=== PATIENT | male | born 1990 | race Caucasian/White ===

== ENCOUNTER 2021-01-03 05:02 | Emergency (ER) | payer OTHER, SELFPAY ==
--- NOTE | ~2021-01-03 | US_ITS ---
EXAMINATION: US ABDOMEN LIMITED CLINICAL INFORMATION: Right upper quadrant pain. COMPARISON: None TECHNIQUE: Real-time imaging of the right upper quadrant abdominal viscera. FINDINGS: PANCREAS: Visualized portions unremarkable. LIVER: Unremarkable. GALLBLADDER: Unremarkable. COMMON BILE DUCT: Normal in caliber measuring 0.3 cm in diameter. RIGHT KIDNEY: 10.5 cm. Unremarkable. FREE FLUID: None. US/US abdomen limited IMPRESSION: Unremarkable right upper quadrant abdominal ultrasound.
--- NOTE | ~2021-01-03 | XR_ITS ---
EXAMINATION: XR CHEST CLINICAL INFORMATION: Chest pain. COMPARISON: None TECHNIQUE: Frontal view of the chest was obtained. FINDINGS: No significant abnormality is noted involving the heart, lungs, mediastinum, bony thorax or soft tissues. XR/XR chest 1V IMPRESSION: No acute cardiopulmonary process.
[2021-01-03 05:21] VITALS: BP 143/64; PULSE 79; RESP 18; TEMP 36.8; O2SAT 100; BMI 23.2
--- NOTE | 2021-01-03 06:15 | PC.NURSE ---
PT TO ED WITH C/O RIGHT SIDED RIB PAIN, UNK INJURY TO AREA. PAIN WOKE PT UP FROM SLEEP. IN ROOM FOR EVAL. IV PLACED TO LAC, LABS DRAWN TO LAB. PT MEDICATED PER EMAR FOR PAIN.
[2021-01-03] MEDS: Ketorolac Tromethamine 15 MG/ML VIAL 30 MG IVPUSH (06:16)
[2021-01-03 06:21] LABS: MANUAL DIFF FLAG NO
[2021-01-03 06:25] LABS: Basophils Absolute Auto 0.1 X10*3/uL (0.0-0.2); Basophils Percent Auto 0.7 % (0-2); Eosinophils Absolute Auto 0.2 X10*3/uL (0.0-0.4); Eosinophils Percent Auto 1.8 % (0-4); Hematocrit 41.3 % (42.0-52.0); Hemoglobin 14.2 g/dl (14.0-18.0); Imm Gran Abs Auto 0.04 X10*3/uL (0.00-0.03); Imm Gran Pct Auto 0.5 % (0.0-0.4); Lymphocytes Absolute Auto 1.5 X10*3/uL (1.2-4.9); Lymphocytes Percent Auto 17.5 % (20-40); Mean Corpuscular HGB Conc 34.4 g/dl (31.0-36.0); Mean Corpuscular Hemoglobin 30.5 pg (27.0-33.0); Mean Corpuscular Volume 88.6 fL (80.0-98.0); Mean Platelet Volume 9.1 fL (9.4-12.4); Monocytes Absolute Auto 0.8 X10*3/uL (0.1-1.2); Monocytes Percent Auto 8.6 % (2-11); Neutrophils Absolute Auto 6.2 x10*3/uL (2.0-8.3); Neutrophils Percent Auto 70.9 % (45-73); Platelet Count 240 X10*3/uL (160-400); Red Blood Count 4.66 X10*6/uL (4.60-5.80); Red Cell Distribution Width 11.9 % (11.0-16.0); White Blood Count 8.8 X10*3/uL (4.8-10.8)
[2021-01-03 06:38] LABS: COVID-19 Test Negative (Negative)
[2021-01-03 06:44] LABS: Alanine Aminotransferase 14 U/L (0-40); Albumin Level 4.2 g/dL (3.5-5.0); Alkaline Phosphatase 41 U/L (39-117); Anion Gap 10 (12-20); Aspartate Amino Transferase 17 U/L (5-37); Bilirubin Total 0.9 mg/dL (0.0-1.0); Blood Urea Nitrogen 15 mg/dL (9-16); Carbon Dioxide 27 mmol/L (22-29); Chloride 107 mmol/L (96-108); Estimated Glomerular Filt Rate > 60; Glucose Random 99 mg/dL (60-115); Potassium 4.2 mmol/L (3.3-5.1); Sodium 140 mmol/L (135-145); Total Protein 6.7 g/dL (6.5-8.0)
--- NOTE | 2021-01-03 06:58 | ED.ABDPAIN ---
HPI - Abdominal Pain General Chief Complaint: Abdominal Pain Stated Complaint: Flank pain Time Seen by Provider: 01/03/21 06:56 History of Present Illness HPI narrative: Patient is a 30-year-old male presents today with having abdominal pain mainly over the right upper quadrant area will come up from sleep at approximately 04:00. Pain was sharp. Improved with time. No cough no congestion or upper respiratory symptoms. No diaphoresis. Patient did have a hamburger last night approximately 18:00. No change in bowel movements. Patient is from home. No history of similar pains in the past. No history of diabetes, hypertension, high cholesterol, smoking, mi. Related Data Allergies Allergy/AdvReac Type Severity Reaction Status Date / Time No Known Allergies Allergy Unverified 11/14/19 16:16 Physical Exam Vital Signs: Vital Signs: Last Vital Signs Temp 97.9 F 01/03/21 07:40 Pulse 70 01/03/21 07:40 Resp 18 01/03/21 07:40 BP 127/77 01/03/21 07:40 Pulse Ox 99 01/03/21 07:40 Body Mass Index 23.2 Appearance: Alert. Oriented X3. No acute distress. Eyes: Pupils equal, round and reactive to light. ENT: Pharynx normal. Neck: Normal inspection. Neck supple. No lymph nodes noted. No crepitus CVS: Normal heart rate and rhythm. Pulses normal. Normal S1 and S2 Respiratory: No respiratory distress. Breath sounds normal. No Wheezing. No rales Abdomen: Soft and nontender. No rigidity. No distention. good BS x4 Skin: Skin warm and dry. Normal skin color. Normal skin turgor. Extremities: No lower extremity edema. Neurovascular intact to all extremities. No Lacerations. No Rash Neuro: Oriented X 3. No motor deficit. No sensory deficit. Moving all extermities. No slurred speech MDM - Abdominal Pain MDM Narrative Medical decision making narrative: Well-appearing has right upper quadrant pain. The ultrasound was negative for any acute evidence of cholecystitis. Patient's white counts normal. Patient's liver profile was normal. Symptom has resolved on arrival. Repeat abdominal exam was soft nontender. Patient's urine showed no evidence of blood. No evidence for infection. Unlikely to have a kidney stone. Will discharge patient home close follow-up on an outpatient basis. Discussed with patient at length. Very small risk of appendicitis still exist. [place] at this time patient unlikely to have appendicitis. Close follow-up on an outpatient basis. Differential Diagnosis Differential diagnosis: Likely abdominal pain Medical Records Attestation: I reviewed the patient's medical records. Lab Data Attestation: I reviewed the patient's lab results. Result diagrams: 01/03/21 06:12 01/03/21 06:12 Labs: Lab Results 01/03/21 01/03/21 01/03/21 Range/Units 06:12 06:12 06:12 WBC 8.8 (4.8-10.8) X10*3/uL RBC 4.66 (4.60-5.80) X10*6/uL Hgb 14.2 (14.0-18.0) g/dl Hct 41.3 L (42.0-52.0) % MCV 88.6 (80.0-98.0) fL MCH 30.5 (27.0-33.0) pg MCHC 34.4 (31.0-36.0) g/dl RDW 11.9 (11.0-16.0) % Plt Count 240 (160-400) X10*3/uL MPV 9.1 L (9.4-12.4) fL Immature Gran % (Auto) 0.5 H (0.0-0.4) % Neut % (Auto) 70.9 (45-73) % Lymph % (Auto) 17.5 L (20-40) % Avery % (Auto) 8.6 (2-11) % Eos % (Auto) 1.8 (0-4) % Baso % (Auto) 0.7 (0-2) % Lymph # (Auto) 1.5 (1.2-4.9) X10*3/uL A[place] # (Auto) 0.8 (0.1-1.2) X10*3/uL Eos # (Auto) 0.2 (0.0-0.4) X10*3/uL Baso # (Auto) 0.1 (0.0-0.2) X10*3/uL Abs Immat Gran (auto) 0.04 H (0.00-0.03) X10*3/uL Absolute Neuts (auto) 6.2 (2.0-8.3) x10*3/uL Absolute Nucleated RBC 0.000 (0.0-0.012) X10*3/uL Nucleated RBC % (auto) 0.0 (0.0-0.2) /100WBC Sodium 140 (135-145) mmol/L Potassium 4.2 (3.3-5.1) mmol/L Chloride 107 (96-108) mmol/L Carbon Dioxide 27 (22-29) mmol/L Anion Gap 10 L (12-20) BUN 15 (9-16) mg/dL Creatinine 1.13 (0.5-1.4) mg/dL Estim Creat Clear Calc 107.0 Estimated GFR > 60 Random Glucose 99 (60-115) mg/dL Calcium 9.0 (8.4-10.2) mg/dL Total Bilirubin 0.9 (0.0-1.0) mg/dL AST 17 (5-37) U/L ALT 14 (0-40) U/L Alkaline Phosphatase 41 (39-117) U/L Total Protein 6.7 (6.5-8.0) g/dL Albumin 4.2 (3.5-5.0) g/dL Urine Color Urine Appearance Urine pH (5.0-8.0) Ur Specific [place] (1.005-1.025) Urine Protein (NEG-TRACE) MG/DL Urine Glucose (UA) (NEG) MG/DL Urine Ketones (NEG) MG/DL Urine Blood (NEG) Urine Nitrite (NEG) Ur Leukocyte Esterase (NEG) Urine RBC (0) /HPF Urine WBC (0-4) /HPF Ur Squamous Epith Cells /LPF Urine Bacteria /LPF COVID-19 ([place]) Negative (Negative) COVID-19 Clin Com See Note 01/03/21 Range/Units 08:38 WBC (4.8-10.8) X10*3/uL RBC (4.60-5.80) X10*6/uL Hgb (14.0-18.0) g/dl Hct (42.0-52.0) % MCV (80.0-98.0) fL MCH (27.0-33.0) pg MCHC (31.0-36.0) g/dl RDW (11.0-16.0) % Plt Count (160-400) X10*3/uL MPV (9.4-12.4) fL Immature Gran % (Auto) (0.0-0.4) % Neut % (Auto) (45-73) % Lymph % (Auto) (20-40) % Avery % (Auto) (2-11) % Eos % (Auto) (0-4) % Baso % (Auto) (0-2) % Lymph # (Auto) (1.2-4.9) X10*3/uL [place] # (Auto) (0.1-1.2) X10*3/uL Eos # (Auto) (0.0-0.4) X10*3/uL Baso # (Auto) (0.0-0.2) X10*3/uL Abs Immat Gran (auto) (0.00-0.03) X10*3/uL Absolute Neuts (auto) (2.0-8.3) x10*3/uL Absolute Nucleated RBC (0.0-0.012) X10*3/uL Nucleated RBC % (auto) (0.0-0.2) /100WBC Sodium (135-145) mmol/L Potassium (3.3-5.1) mmol/L Chloride (96-108) mmol/L Carbon Dioxide (22-29) mmol/L Anion Gap (12-20) BUN (9-16) mg/dL Creatinine (0.5-1.4) mg/dL Estim Creat Clear Calc Estimated GFR Random Glucose (60-115) mg/dL Calcium (8.4-10.2) mg/dL Total Bilirubin (0.0-1.0) mg/dL AST (5-37) U/L ALT (0-40) U/L Alkaline Phosphatase (39-117) U/L Total Protein (6.5-8.0) g/dL Albumin (3.5-5.0) g/dL Urine Color YELLOW Urine Appearance CLEAR Urine pH 6.0 (5.0-8.0) Ur Specific [place] 1.025 (1.005-1.025) Urine Protein NEG (NEG-TRACE) MG/DL Urine Glucose (UA) NEG (NEG) MG/DL Urine Ketones NEG (NEG) MG/DL Urine Blood NEG (NEG) Urine Nitrite NEG (NEG) Ur Leukocyte Esterase NEG (NEG) Urine RBC 0 (0) /HPF Urine WBC 0-2 (0-4) /HPF Ur Squamous Epith Cells NONE /LPF Urine Bacteria NONE /LPF COVID-19 ([place]) (Negative) COVID-19 Clin Com Discharge Plan Discharge Clinical Impression: Abdominal pain Patient Disposition: Home, Self-Care Instructions: Abdominal Pain (ED) Additional Instructions: Small risk of appendicitis still exists. Worsened abdominal pain return to the emergency department Referrals: Morgan Acosta MD [Primary Care Provider] - 2 days PMF Past Medical History Attestation statement: The following information was validated with the patient. Social History Social History Patient Tobacco Use Status: Never used Tobacco Smoked in Last 30 Days: No Use of substances other than those prescribed or required for medical reasons: Yes Substance Use Type: Marijuana Advance Directives: No Advance Directives Information Provided: No
[2021-01-03 07:40] VITALS: BP 127/77; PULSE 70; RESP 18; TEMP 36.6; O2SAT 99
[2021-01-03 08:43] LABS: Appearance Urine CLEAR; Color Urine YELLOW; Glucose Urine UA NEG (NEG); Leukocyte Esterase Urine NEG (NEG); Nitrite Urine NEG (NEG); Specific Gravity - Urine 1.025 (1.005-1.025); Urine Blood NEG (NEG); Urine Ketones NEG (NEG); Urine Protein NEG (NEG-TRACE)
[2021-01-03 08:49] LABS: RBC Urine 0 /HPF (0); WBC Urine 0-2 /HPF (0-4)
== END 2021-01-03 09:21 | disposition home or self-care (01) ==
PROVIDERS: Emergency Provider Emergency Medicine Emergency Medical Services; PCP Internal Medicine
DX: R10.11 Right upper quadrant pain (principal); Z20.822 Contact with and (suspected) exposure to COVID-19
CPT/HCPCS: 36415; 71045; 76705; 80053; 81001; 85025; 87635; 96374; 99285; J1885

== ENCOUNTER 2021-02-17 11:47 | Outpatient (REF) | payer OTHER, SELFPAY | END 2021-02-17 11:48 | disposition home or self-care (01) | LOC: HO.WFDLDS 11:47 | PROVIDERS: Visit Provider Internal Medicine | DX: Z20.822 Contact with and (suspected) exposure to COVID-19 (principal) | CPT/HCPCS: C9803; U0003; U0005 ==

== ENCOUNTER 2024-11-23 07:48 | Inpatient (IN) | payer BC, SELFPAY ==
[2024-11-23] VITALS (10 sets, daily range): BP systolic 101–141; BP diastolic 56–71; PULSE 57–85; RESP 16–19; TEMP 35.7–36.8; O2SAT 96–100; BMI 24.8; BMI 24.5
--- NOTE | ~2024-11-23 | CT_ITS ---
CLINICAL HISTORY: RLQ pain, leukocytosis, r o acute appy CT abdomen and pelvis with contrast Comparison: None provided Findings: The lung bases are clear. The appendix is abnormally dilated, thick-walled and surrounded by stranding. No drainable abscess or definite free air. Reactive free fluid within the pelvis. No bowel obstruction. The liver, gallbladder, spleen, adrenal glands and pancreas are unremarkable. Kidneys, ureters and bladder are normal. No acute osseous finding. Impression: Acute appendicitis without evidence of perforation or current abscess. This document has been electronically signed by: Ajit Michele MD on 11/23/2024 09:30:57
[2024-11-23 08:12] LABS: MANUAL DIFF FLAG NO
[2024-11-23 08:13] LABS: Hematocrit 44.4 % (42.0-52.0); Hemoglobin 15.2 g/dl (14.0-18.0); Imm Gran Abs Auto 0.05 X10*3/uL (0.00-0.03); Imm Gran Pct Auto 0.3 % (0.0-0.4); Lymphocytes Absolute Auto 0.8 X10*3/uL (1.2-4.9); Mean Corpuscular HGB Conc 34.2 g/dl (31.0-36.0); Mean Corpuscular Hemoglobin 29.9 pg (27.0-33.0); Mean Corpuscular Volume 87.4 fL (80.0-98.0); NRBC Abs Auto 0.000 X10*3/uL (0.0-0.012); NRBC Pct Auto 0.0 /100WBC (0.0-0.2); Platelet Count 298 X10*3/uL (160-400); Red Blood Count 5.08 X10*6/uL (4.60-5.80); White Blood Count 16.9 X10*3/uL (4.8-10.8)
[2024-11-23 08:14] LABS: Appearance Urine Cloudy; Glucose Urine UA Negative (Negative); PH 7.5 (5.0-9.0); Specific Gravity - Urine 1.025 (1.005-1.025)
--- OUTSIDE RECORDS SUMMARY | 2024-11-23 08:23 | XMS_ITS | Clinical Summary ---
Author Organization [facility] Address [address] [place] [phone] Phone Care Team Providers Care Traffic Control Flagger Name Role Phone Morgan Acosta MD Primary Care Provider [phone] Medications No known medications Active Problems No known active problems Social History Tobacco Use Types Packs/Day Years Used Date Smoking Tobacco: Never Assessed Education Answer Date Recorded Are you interested in more education? Not on richard e 06/25/2022 Are you concerned about learning? Not on file 06/25/2022 No 06/25/2022 No 06/25/2022 Digital Access Answer Date Recorded No 07/26/2022 No 07/26/2022 Reliable internet access at home? Not on file 07/26/2022 Device with a working camera? Not on file Sex and Gender Information Value Date Recorded Sex Assigned at Male 11/17/2021 8:47 AM EDT Legal Sex Male 8:33 AM EDT Gender Identity Male 11/17/2021 8:47 AM EDT Sexual Orientation Straight 11/17/2021 8: 47 AM EDT Last Filed Vital Signs Vital Sign Reading Time Taken Comments Blood Pressure 128/76 11/16/2023 2:40 PM EDT Pulse 64 11/16/2023 2:40 PM EDT Temperature 36.8 C (98.2 F) 11/16/2023 2:40 PM EDT Respiratory Rate 18 11/16/2023 2:40 PM EDT Oxygen Saturation 98% 11/16/2023 2:40 PM EDT Inhaled Oxygen Concentration - - Weight 83.9 kg (185 lb) 11/16/2023 2:40 PM EDT Height 185.4 cm (6' 1 ) 11/16/2023 2:40 PM EDT Body Mass Index 24.41 11/16/2023 2:40 PM EDT Plan of Treatment Health Maintenance Due Date Last Done Comments Adult Td,Tdap Booster 1989 LIPID PANEL 1989 DEPRESSION SCREENING 2001 SMOKING Hx and SMOKELESS TOB ACCO SCREENING 2002 HEPATITIS C SCREENING 05/07/2007 HIV ONE-TIME SCREENING (18-6 5 YEARS) 05/07/2007 INFLUENZA VACCINE (#1) 2024 COVID-19 VACCINE ( - 2023-2 5 season) 2024 HEPATITIS A VACCINES Aged Out No long er eligible based on patient's age to complete this topic HIB VACCINES Aged Out No longer eligi ble based on patient's age to complete this topic MENINGOCOCCAL VACCINES (ACWY) Aged Out No longer eligible based on patient's age to complete this topic MENINGOCOCCAL VACCINES (B) Aged Out N o longer eligible based on patient's age to complete this topic PNEUMOCOCCAL VACCINES (0-49 years) Aged Out No longer eligible based on patient's age to complete this topic Medical Devices Not on file Insurance [facility] [place] [address] [place] [address] [place] [address] [facility] Care Teams Traffic Control Flagger Relationship Specialty Start Date End Date Morgan Acosta MD [address] [place] [address] [id number] PCP - General Internal Medicine 11/17/21 Additional Source Comments The information contained in this document represents components of the legal health record. It is not the complete legal health record.[facility]
[2024-11-23 08:27] LABS: Alanine Aminotransferase 26 U/L (0-40); Albumin Level 5.0 g/dL (3.5-5.0); Alkaline Phosphatase 61 U/L (39-117); Anion Gap 9 (12-20); Aspartate Amino Transferase 23 U/L (5-37); Blood Urea Nitrogen 15 mg/dL (9-16); Calcium 9.8 mg/dL (8.4-10.2); Carbon Dioxide 29 mmol/L (22-29); Chloride 107 mmol/L (96-108); Creatinine Clr Calc Pharmacy 105.9; Estimated Glomerular Filt Rate > 60; Lipase 21 U/L (8-78); Potassium 3.7 mmol/L (3.3-5.1); Sodium 141 mmol/L (135-145); Total Protein 7.8 g/dL (6.5-8.0)
--- NOTE | 2024-11-23 08:49 | ED_ITS ---
HPI - Abdominal Pain General Chief Complaint: Abdominal Pain Stated Complaint: abd pain Time Seen by Provider: 11/23/24 08:18 Source: patient Mode of arrival: ambulatory Limitations: no limitations History of Present Illness ED Provider: Mirtha Coleman APRN HPI narrative: 34 yo male with no known medical history, no known surgical history presets to the ER with complaints of abdominal pain. Reports approximately 4 days ago he started to notice diffuse abdominal pain described as fullness, pressure and bloating. Pain became more focal to the right lower abdomen over the last 24 hours. Denies any nausea, vomiting, diarrhea, constipation, urinary changes, fevers or chills. Related Data Allergies Allergy/AdvReac Type Severity Reaction Status Date / Time No Known Allergies Allergy Verified 11/23/24 07:56 Review of Systems Review of Systems Yes all other systems are reviewed and are negative Constitutional: Reports no additional constitutional complaints, Denies body ache(s), Denies chills, Denies fever(s), Denies headache(s) and Denies weakness Eyes: Reports no additional eye complaints and Denies change in vision Reports system reviewed and no additional complaints, except as documented, Denies dizziness, Denies headache(s), Denies nasal congestion, Denies nasal discharge and Denies neck pain Cardiovascular: Reports no additional cardiovascular complaints, Denies chest pain, Denies leg edema and Denies dyspnea Respiratory: Reports no additional respiratory complaints, Denies cough and Denies dyspnea Gastrointestinal: Reports no additional gastrointestinal complaints, Reports abdominal pain, Denies diarrhea, Denies nausea and Denies vomiting Genitourinary: Denies urinary incontinence Musculoskeletal: Reports no additional musculoskeletal complaints, Denies back pain, Denies arthralgias, Denies joint swelling, Denies neck pain, Denies numbness and Denies tingling Skin/Breast: Reports system reviewed and no additional complaints, except as docu and Denies rash Reports system reviewed and no additional complaints, except as documented, Denies Abnormal speech present, Denies dizziness, Denies headache(s), Denies numbness, Denies tingling and Denies weakness PMFSH Past Medical History Attestation statement: The following information was validated with the patient. Source: old records reviewed and nursing notes reviewed Social History Social History Unable to assess alcohol history related to: Unknown Patient Tobacco Use Status: Never used Tobacco Substance Use Type: Marijuana Advance Directives: No Advance Directives Information Provided: No Physical Exam ED Vital Signs: Vital Signs - 24 hr 11/23/24 07:55 11/23/24 09:35 Temperature 96.8 F 98.2 F Pulse Rate 84 65 Respiratory Rate 16 18 Blood Pressure 141/67 H 101/56 L Pulse Oximetry 99 99 Oxygen Delivery Method Room Air Room Air BMI result Body Mass Index 24.8 Const General: cooperative, healthy appearing, comfortable and no acute distress Orientation/consciousness: patient oriented x3 Limitations: no limitations HENMT Head: Yes normal to inspection Ears: hearing grossly normal bilaterally General nose exam: Normal external nose present Face and sinus: Yes normal facial exam Mouth: Normal oral and palatal mucosa present Throat: Yes posterior oropharynx normal Eyes General: appearance normal, both eyes and all related structures Pupils: Equal, round and reactive pupils present Neck Neck: Yes normal visual inspection Chest Chest palpation & inspection: normal inspection of the chest Resp Effort & Inspection: normal respiratory effort Auscultation: clear to auscultation bilaterally Cardio Rate: regular rate Rhythm: regular rhythm Peripheral pulses: Peripheral pulses 2+ throughout GI Inspection: Yes normal to inspection Palpation (GI): Soft to palpation and Tenderness to palpation present (GI) (diffusely tender-no rebound or guarding ) Auscultation: normal bowel sounds Back/Spine/Pelvis Thoracic/Lumbar Spine: thoracic and lumbar spine normal to inspection Skin General skin exam: no rashes or lesions noted Neuro General: patient oriented x3, no focal motor deficits and normal sensation to monofilament Cranial nerves: Yes Equal, round and reactive pupils present Cognition (Neuro): normal cognition Speech: No Abnormal speech present Gait exam (Neuro): Normal gait present Motor exam (neuro): 5/5 motor strength present throughout Extrem General: Yes normal to inspection Medical Decision Making Medical Decision Making MDM Narrative: 34 yo male with no known medical history, no known surgical history presets to the ER with complaints of abdominal pain. Reports approximately 4 days ago he started to notice diffuse abdominal pain described as fullness, pressure and bloating. Pain became more focal to the right lower abdomen over the last 24 hours. Denies any nausea, vomiting, diarrhea, constipation, urinary changes, fevers or chills. On exam patient has some discomfort to the right lower quadrant with no rebound or guarding. He has normal bowel sounds. His vitals are stable. Labs from triage show leukocytosis, otherwise normal. Will obtain CT abdomen and pelvis Offered analgesia but patient declined Differential Diagnosis Differential Diagnoses: The differential diagnosis associated with the presentation includes Appendicitis, diverticulitis Admission/Observation Consideration of admission/observation: Escalation of care including admission/observation considered Consult Healthcare Provider Management of the patient was discussed with: [employer] Chemist General surgery (Cheryl) paged [phone] to general surgery. Plan for admission for surgical procedure Lab Data MDM Lab Attestation statement: I reviewed the patient's lab results. 11/23/24 08:06 11/23/24 08:06 Labs: Lab Results 11/23/24 11/23/24 Range/Units 08:06 09:11 WBC 16.9 H (4.8-10.8) X10*3/uL RBC 5.08 (4.60-5.80) X10*6/uL Hgb 15.2 (14.0-18.0) g/dl Hct 44.4 (42.0-52.0) % MCV 87.4 (80.0-98.0) fL MCH 29.9 (27.0-33.0) pg MCHC 34.2 (31.0-36.0) g/dl RDW 12.4 (11.0-16.0) % Plt Count 298 (160-400) X10*3/uL MPV 8.9 L (9.4-12.4) fL Immature Gran % (Auto) 0.3 (0.0-0.4) % Neut % (Auto) 88.8 H (45-73) % Lymph % (Auto) 4.6 L (20-40) % [place] % (Auto) 5.6 (2-11) % Eos % (Auto) 0.2 (0-4) % Baso % (Auto) 0.5 (0-2) % Lymph # (Auto) 0.8 L (1.2-4.9) X10*3/uL [place] # (Auto) 1.0 (0.1-1.2) X10*3/uL Eos # (Auto) 0.0 (0.0-0.4) X10*3/uL Baso # (Auto) 0.1 (0.0-0.2) X10*3/uL Abs Immat Gran (auto) 0.05 H (0.00-0.03) X10*3/uL Absolute Neuts (auto) 15.0 H (2.0-8.3) x10*3/uL Absolute Nucleated RBC 0.000 (0.0-0.012) X10*3/uL Nucleated RBC % (auto) 0.0 (0.0-0.2) /100WBC Sodium 141 (135-145) mmol/L Potassium 3.7 (3.3-5.1) mmol/L Chloride 107 (96-108) mmol/L Carbon Dioxide 29 (22-29) mmol/L Anion Gap 9 L (12-20) BUN 15 (9-16) mg/dL Creatinine 1.10 (0.5-1.4) mg/dL Estim Creat Clear Calc 105.9 Estimated GFR > 60 Random Glucose 117 H (60-115) mg/dL Lactic Acid 0.8 (0.5-2.0) mmol/L Calcium 9.8 D (8.4-10.2) mg/dL Total Bilirubin 0.7 (0.0-1.0) mg/dL AST 23 (5-37) U/L ALT 26 (0-40) U/L Alkaline Phosphatase 61 (39-117) U/L Total Protein 7.8 (6.5-8.0) g/dL Albumin 5.0 (3.5-5.0) g/dL Lipase 21 (8-78) U/L Urine Color Yellow Urine Appearance Cloudy Urine pH 7.5 (5.0-9.0) Ur Specific [place] 1.025 (1.005-1.025) Urine Protein Negative (Neg-Trace) mg/dL Urine Glucose (UA) Negative (Negative) mg/dL Urine Ketones Trace (Negative) mg/dL Urine Blood Negative (Negative) Urine Nitrite Negative (Negative) Ur Leukocyte Esterase Negative (Negative) Independent Interpretation I performed an independent interpretation of an: CT Scan Interpretation: I independently viewed the CT scan agree with the radiology report Radiology Impression Discussion of test interpretation with radiology: I have reviewed the radiologist's reading. Radiologist Impression: [address] [address] [address] Scan Report Signed with Nelyenda Patient: Hieu Piper MR#: [id number] : 1990 Acct:[id number] Age/Sex: 34 / M ADM Date: 11/23/24 Loc: HO.ED Attending Dr: Ordering Physician: Mirtha Coleman NP Date of Service: 11/23/24 Procedure(s): CT abdomen pelvis w IV con Accession Number(s): [id number] cc: Mirtha Coleman NP; Physician,None ~ Report Number: [id number]: Total DLP = 493.00 mGy-cm Reason for Exam: RLQ pain, leukocytosis, r/o acute appy ADDENDUMThis document has been electronically signed by: Ajit Michele MD on 11/23/2024 09:30:57 ADDENDUM: This report was discussed with Jared Shannon MD on Nov 23, 2024 09:35:00 EDT. This document has been electronically signed by: Sue Ortega on 11/23/2024 09:35:58 Addendum Dictated By: Ajit Michele MD Addendum Signed By: <Electronically signed by Ajit Michele MD in [place]> 11/23/24935 Addendum Cosigned By: DD/ TD/TT: 11/23/24 CLINICAL HISTORY: RLQ pain, leukocytosis, r o acute appy CT abdomen and pelvis with contrast Comparison: None provided Findings: The lung bases are clear. The appendix is abnormally dilated, thick-walled and surrounded by stranding. No drainable abscess or definite free air. Reactive free fluid within the pelvis. No bowel obstruction. The liver, gallbladder, spleen, adrenal glands and pancreas are unremarkable. Kidneys, ureters and bladder are normal. No acute osseous finding. Impression: Acute appendicitis without evidence of perforation or current abscess. Medications Administered Generic Name Dose Route Start Last Admin Trade Name Freq PRN Reason Stop Dose Admin Piperacillin Sod/Tazobactam 50 mls @ 100 mls/hr 11/23/24 10:03 11/23/24 10:12 Sod 3.375 gm/ Sodium Chloride IV 11/23/24 10:32 100 mls/hr ONCE ONE Administration Discontinued Medications Generic Name Dose Route Start Last Admin Trade Name Freq PRN Reason Stop Dose Admin Iohexol 100 ml 11/23/24 08:51 11/23/24 08:52 Iohexol 350 Mg/Ml 100 Ml Infus..Btl IV 11/23/24 08:52 85 ml ONCE ONE Administration Critical Care Time Critical Care Time Critical Care Time: Yes Total Critical Care Time: 60 Attestation: Time includes: direct patient care, patient reassessment, coordination of patient care, interpretation of data review of patient's medical records, medical consultation and documentation of patient care. Discharge Plan Discharge Clinical Impression: Acute appendicitis Patient Disposition: Admitted As Inpatient Print Language: Kiswahili
[2024-11-23] MEDS: iohexoL 350 MG/ML 100 ML INFUS..BTL IV (08:52)
--- NOTE | 2024-11-23 08:54 | PC.NURSE ---
Pt in CT at this time, 20G IV was placed to R AC.
--- NOTE | 2024-11-23 10:19 | P.HPGS_ITS ---
History of Present Illness History of Present Illness Date of Service: 11/23/24 Chief complaint: acute appendicitis Narrative: Hieu Piper is a 34 year old male presenting with complaints of abdominal pain in the right lower quadrant. The pain began in the right upper quadrant on Monday but over the next several days gradually radiated down to the right lower quadrant. Last evening the pain became quite severe and he subsequently presented to the emergency department this morning. He denies a previous history of similar abdominal pain. He does have nausea without vomiting and reports a reduced appetite. He denied fever or chills. The pain does seem to increase with movement. Workup in the emergency department revealed an elevated WBC of 16.9. CT abdomen and pelvis confirmed a thickened and enlarged appendix with inflammatory changes without evidence of perforation or abscess. He is admitted to the surgical service for further management of his acute appendicitis. Review of Systems 2 Review of Systems: Yes all other systems are reviewed and are negative [facility] Social History Social History Unable to assess alcohol history related to: Unknown Patient Tobacco Use Status: Never used Tobacco Substance Use Type: Marijuana Advance Directives: No Advance Directives Information Provided: No Meds Allergies Allergy/AdvReac Type Severity Reaction Status Date / Time No Known Allergies Allergy Verified 11/23/24 07:56 Active Medications: Current Medications Hydromorphone HCl (Hydromorphone Hcl 0.5 Mg/0.5 Ml Syringe) 0.5 mg IVPUSH Q3H PRN; Protocol PRN Reason: Pain, Severe (Pain Scale 7-10) Piperacillin Sod/Tazobactam (Sod 3.375 gm/ Sodium Chloride) 50 mls @ 100 mls/hr IV ONCE ONE Stop: 11/23/24 10:32 Last Admin: 11/23/24 10:12 Dose: 100 mls/hr Acetaminophen (Ofirmev) 1,000 mg in 100 mls @ 400 mls/hr IV Q6H PRN PRN Reason: Pain, Mild (Pain Scale 1-3) Dextrose/Lactated Ringer's (D5lr) 1,000 mls @ 125 mls/hr IVCONT .Q8H [facility] Piperacillin Sod/Tazobactam (Sod 3.375 gm/ Sodium Chloride) 50 mls @ 100 mls/hr IV Q6H [facility] Melatonin (Melatonin 3 Mg Tablet) 6 mg PO BEDTIME PRN PRN Reason: Insomnia Ondansetron HCl (Ondansetron Hcl 4 Mg/2 Ml Vial) 4 mg IVPUSH QID PRN PRN Reason: Nausea Sodium Chloride (0.9 % Sodium Chloride Flush 3 Ml Syringe) 3 ml IVFLUSH QSHIFT [facility] Physical Exam 2 Vital Signs: Vital Signs: Last Vital Signs Temp 98.2 F 11/23/24 09:35 Pulse 65 11/23/24 09:35 Resp 18 11/23/24 09:35 BP 101/56 L 11/23/24 09:35 Pulse Ox 99 11/23/24 09:35 O2 Del Method Room Air 11/23/24 09:35 BMI result Body Mass Index 24.8 Const: General: cooperative and no acute distress Nutritional Appearance: w ell nourished Orientation/consciousness: patient oriented x3 Limitations: no limitations HEENT: Head: Yes normocephalic and Yes atraumatic Ears: hearing grossly normal bilaterally Resp: Effort & Inspection: normal respiratory effort, no audible wheezes, no cough and no respiratory distress Cardio: Jugular venous distension: no JVD GI: Inspection: Yes normal to inspection Palpation (GI): Soft to palpation, Tenderness to palpation present (GI) in the LLQ, in the RLQ, at McBurney's point, obturator sign positive and Rovsing's sign positive, no hernias and no masses Percussion: Yes normal to percussion Auscultation: normal bowel sounds Rectal Exam - Male: Yes deferred Skin: Other: Warm, dry, no rash Neuro: General: patient oriented x3 Extrem: General: Yes no clubbing, cyanosis or edema Results Results Labs: Short CBC 11/23/24 Range/Units 08:06 WBC 16.9 H (4.8-10.8) X10*3/uL Hgb 15.2 (14.0-18.0) g/dl Hct 44.4 (42.0-52.0) % Plt Count 298 (160-400) X10*3/uL BMP 11/23/24 08:06 Sodium 141 Potassium 3.7 Chloride 107 Carbon Dioxide 29 BUN 15 Creatinine 1.10 Calcium 9.8 D Liver Function 11/23/24 Range/Units 08:06 Total Bilirubin 0.7 (0.0-1.0) mg/dL AST 23 (5-37) U/L ALT 26 (0-40) U/L Alkaline Phosphatase 61 (39-117) U/L Albumin 5.0 (3.5-5.0) g/dL Urine 11/23/24 Range/Units 08:06 Urine Color Yellow Urine Appearance Cloudy Urine pH 7.5 (5.0-9.0) Ur Specific [facility] 1.025 (1.005-1.025) Urine Protein Negative (Neg-Trace) mg/dL Urine Glucose (UA) Negative (Negative) mg/dL Additional studies: CT abdomen and pelvis: Assessment and Plan (1) Acute appendicitis: Qualifiers: Acute appendicitis type: with localized peritonitis Appendicitis gangrene presence: without gangrene Appendicitis perforation presence: without perforation Appendicitis abscess presence: without abscess Qualified Code(s): K35.30 - Acute appendicitis with localized peritonitis, without perforation or gangrene Status: Acute Plan 34-year-old male patient with a several day history of abdominal pain increasing in severity now localized to the right lower quadrant. On examination the patient is tender in the right lower quadrant over McBurney's point with a positive Rovsing sign suggestive of acute appendicitis. Laboratories revealed an elevated WBC of 16.9, and CT abdomen and pelvis confirmed a thickened, enlarged and inflamed appendix without fecalith. We discussed the option of treatment with IV antibiotics verses laparoscopic or possible open appendectomy.. The patient wishes to proceed with surgery. I reviewed the procedure, risks, and alternatives in detail and he consents to a laparoscopic or possible open appendectomy. He has been added onto the operative schedule for today pending reopening of the OR. 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 Quality Stroke Does the patient have a stroke diagnosis?: No VTE Prior VTE?: No VTE Risk Level:: Surgical - low VTE Device Contraindication: N/A - Device Ordered VTE Drug Contraindication: Treatment Not Indicated Procedures Date of Service Date of Service: 11/23/24
[2024-11-23] MEDS: Dextrose 5 % and Lactated Ring 1,000 ML 125 ML IVCONT ×2 (10:53→19:51)
--- NOTE | 2024-11-23 10:58 | HO.NURTONUR ---
Hieu is a pleasant 34 yo male, full code with NKA who came to ED for reports of abdominal pain/bloating x 4 days. Reports pain is significantly worse to RLQ today. No N/V. Reports abd pain its intermittent, currently rates it 03/08. Abd CT shows acute appendicitis. Received IV abx in ED. A/O x 3, 20G IV to R AC. IVF per APR. Pt has been NPO, ? surgery when generators/transformers fixed. Independent/ambulatory.
--- NOTE | 2024-11-23 11:35 | PHA.MEDREC ---
Addendum entered by Kaiden Lopez RPh 11/23/24 11:57: Reviewed by [facility]. Original Note: Pharmacy Consult ? Medication Reconciliation Pharmacy has completed the medication reconciliation. Confirmed medication list with patient. Patient takes daily multivitamin in morning. Patient took Calcium carbonate (tums) this morning at 3:30. Patient took famotidine and bismuth subsalicylate yesterday night, but could not confirm what time.
--- NOTE | 2024-11-23 20:32 | HO.ANESPROP2 ---
HPI - Anesthesia Eval Consult details Narrative: Acute appendicitis PMFSH Active Problems Active Problems: All Active Problems (Updated 11/23/24 @ 10:24 by Charlie Luna MD) Acute appendicitis (Acute) Family History Family history of problems with anesthesia: No Surgical History History of Problems with Anesthesia: No Social History Social History Household Members: Spouse and Children Housing: House Do you presently have visiting nurse or other home services: No Patient Tobacco Use Status: Never used Tobacco Substance Use Type: Marijuana Meds Allergies Allergy/AdvReac Type Severity Reaction Status Date / Time No Known Allergies Allergy Verified 11/23/24 07:56 Active Medications: Current Medications Hydromorphone HCl (Hydromorphone Hcl 0.5 Mg/0.5 Ml Syringe) 0.5 mg IVPUSH Q3H PRN; Protocol PRN Reason: Pain, Severe (Pain Scale 7-10) Acetaminophen (Ofirmev) 1,000 mg in 100 mls @ 400 mls/hr IV Q6H PRN PRN Reason: Pain, Mild (Pain Scale 1-3) Dextrose/Lactated Ringer's (D5lr) 1,000 mls @ 125 mls/hr IVCONT .Q8H [facility] Last Admin: 11/23/24 19:51 Dose: 125 mls/hr Piperacillin Sod/Tazobactam (Sod 3.375 gm/ Sodium Chloride) 50 mls @ 100 mls/hr IV Q6H [facility] Last Infusion: 11/23/24 16:55 Dose: Infused Melatonin (Melatonin 3 Mg Tablet) 6 mg PO BEDTIME PRN PRN Reason: Insomnia Ondansetron HCl (Ondansetron Hcl 4 Mg/2 Ml Vial) 4 mg IVPUSH QID PRN PRN Reason: Nausea Sodium Chloride (0.9 % Sodium Chloride Flush 3 Ml Syringe) 3 ml IVFLUSH QSHIFT [facility] Last Admin: 11/23/24 15:40 Dose: Not Given Home Medications ?Medication ?Instructions ?Recorded ?Confirmed ?Last Taken ?Type bismuth subsalicylate 262 mg/15 mL 524 mg PO Q1H PRN Stomach Upset 11/23/24 11/23/24 11/22/24 History oral suspension calcium carbonate 200 mg PO TID PRN Acid Reflux 11/23/24 11/23/24 11/23/24 03:30 History famotidine 10 mg tablet 10 mg PO DAILY PRN Acid Reflux 11/23/24 11/23/24 11/22/24 History multivitamin 1 tab PO DAILY 11/23/24 11/23/24 11/22/24 History Exam Height,Weight and Vital Signs: Height 6 ft 1 in Weight 84.2 kg Last Vital Signs Temp 98.0 F 11/23/24 14:00 Pulse 57 11/23/24 14:00 Resp 16 11/23/24 14:00 BP 106/58 L 11/23/24 14:00 Pulse Ox 97 11/23/24 14:00 O2 Del Method Room Air 11/23/24 14:00 Pertinent Lab Results Pertinent Lab Results: Laboratory Tests 11/23/24 11/23/24 08:06 09:11 WBC 16.9 H RBC 5.08 Hgb 15.2 Hct 44.4 MCV 87.4 MCH 29.9 MCHC 34.2 RDW 12.4 Plt Count 298 MPV 8.9 L Immature Gran % (Auto) 0.3 Neut % (Auto) 88.8 H Lymph % (Auto) 4.6 L [place] % (Auto) 5.6 Eos % (Auto) 0.2 Baso % (Auto) 0.5 Lymph # (Auto) 0.8 L [place] # (Auto) 1.0 Eos # (Auto) 0.0 Baso # (Auto) 0.1 Abs Immat Gran (auto) 0.05 H Absolute Neuts (auto) 15.0 H Absolute Nucleated RBC 0.000 Nucleated RBC % (auto) 0.0 Sodium 141 Potassium 3.7 Chloride 107 Carbon Dioxide 29 Anion Gap 9 L BUN 15 Creatinine 1.10 Estim Creat Clear Calc 105.9 Estimated GFR > 60 Random Glucose 117 H Lactic Acid 0.8 Calcium 9.8 D Total Bilirubin 0.7 AST 23 ALT 26 Alkaline Phosphatase 61 Total Protein 7.8 Albumin 5.0 Lipase 21 Urine Color Yellow Urine Appearance Cloudy Urine pH 7.5 Ur Specific [place] 1.025 Urine Protein Negative Urine Glucose (UA) Negative Urine Ketones Trace Urine Blood Negative Urine Nitrite Negative Ur Leukocyte Esterase Negative Airway Mallampati Class: II TM Dist: >3cm Neck ROM: Full Loose/Missing/Broken Teeth: No Heart: RRR Lungs: CTA Assessment and Plan Assessment Anesthesia Assessment: Anesthesia Plan Discussed and Chart Reviewed Final Anesthetic Review Family History of Problems with Anesthesia: No History of Problems with Anesthesia: No NPO: Yes ASA Class: I and Emergency Final Preanesthetic Review: No Changes in Pt Med Stat, Meds/Allgs Chart Reviewed, Consent Obtained/Reviewed and Anes Risks/Benef Reviewed Patient Risk: Low Procedure Risk: Intermediate Anesthetic Plan Anesthetic Plan: GA Disposition: Standard PACU
--- NOTE | 2024-11-23 20:55 | W.PM.OPN ---
Operative Note Operative Note Date of Service: 11/23/24 Narrative: Preoperative diagnosis: Acute appendicitis Postoperative diagnosis: Same Procedure: Laparoscopic appendectomy Surgeon: Charlie Luna MD Auto Appraiser: none Anesthesia: General endotracheal Indications for procedure: 34-year-old male patient presenting with complaints of abdominal pain in the right lower quadrant found on workup to have an elevated WBC and CT findings consistent with acute appendicitis Operative findings: Acutely inflamed appendix with surrounding phlegmon, no abscess or perforation appreciated Specimen: Appendix Estimated blood loss: Less than 2 mL Complications: None Procedure details: Patient was brought to the OR and placed in a supine position. After administering general anesthesia the patient's abdomen was prepped with ChloraPrep and draped in a sterile fashion. A surgical time-out was called and consent confirmed. Patient received preoperative antibiotics and Venodyne boots were in place. Local anesthesia consisting of 0.5% Sensorcaine with epinephrine was infiltrated in periumbilical region. A 5 mm incision was made below the umbilicus and carried down through subcutaneous tissue. A Veress needle was then inserted while elevating abdominal cavity with towel clips. After a positive drop test the abdomen was insufflated to a pressure of 15 mm of mercury. The Veress needle was removed and a 5 mm trocar inserted. The camera was then inserted in the abdomen explored. A 2nd 5 mm trocars placed in the lower midline. A 12 mm trocar was then placed in the left lower quadrant. The patient was then placed in a Trendelenburg position and rotated to the left. The appendix was identified in the right lower quadrant and brought up using blunt dissecting clamps. The mesentery of the appendix was then divided using the LigaSure. The appendiceal artery was cauterized and divided using the LigaSure. Dissection was continued down to the base of the cecum. An Endo-SANDHYA stapler with a purple reload was then used to divide the appendix at the base with the cecum. The appendix was then placed in Endo-Catch bag and brought out through the left lower quadrant incision. The abdomen was then irrigated with saline solution and suctioned dry. Wounds were checked for hemostasis. CO2 was then evacuated from the abdominal cavity and all trocars removed. Fascia was closed in the left lower quadrant incision using a [id number] 0 Polysorb suture. Skin was closed at all incisions using a subcuticular 4-0 Polysorb suture. Steri-Strips 2 x 2 gauze and Tegaderm were then applied. The patient tolerated the procedure well. Sponge, instrument, needle counts reported as correct. The patient was transferred to PACU in stable condition.
[2024-11-24 03:58] VITALS: BP 109/53; PULSE 56; RESP 16; TEMP 36.2; O2SAT 98
[2024-11-24] MEDS: Dextrose 5 % and Lactated Ring 1,000 ML 125 ML IVCONT (06:29)
--- NOTE | 2024-11-24 08:58 | PM.PNGS ---
Subjective Subjective Date of Service: 11/24/24 Interval history: Patient feels much improved this morning. He is able to tolerate some p.o. last night. Reports some incisional pain but overall is much improved. Physical Exam Vital Signs: Vital Signs: Last Vital Signs Temp 97.2 F 11/24/24 03:58 Pulse 56 11/24/24 03:58 Resp 16 11/24/24 03:58 BP 109/53 L 11/24/24 03:58 Pulse Ox 98 11/24/24 03:58 O2 Del Method Room Air 11/24/24 03:58 BMI result Body Mass Index 24.5 Const: General: no acute distress Nutritional Appearance: well nourished Orientation/consciousness: patient oriented x3 Limitations: no limitations Resp: Effort & Inspection: normal respiratory effort GI: Other: Trocar incisions are clean, dry, and intact without redness or discharge. Neuro: General: patient oriented x3 Extrem: General: Yes no pedal edema Objective Data Active Medications Hydromorphone HCl (Hydromorphone Hcl 0.5 Mg/0.5 Ml Syringe) 0.5 mg IVPUSH Q3H PRN; Protocol PRN Reason: Pain, Severe (Pain Scale 7-10) Acetaminophen (Ofirmev) 1,000 mg in 100 mls @ 400 mls/hr IV Q6H PRN PRN Reason: Pain, Mild (Pain Scale 1-3) Last Infusion: 11/24/24 00:13 Dose: Infused Documented By: STEPHANIE Dextrose/Lactated Ringer's (D5lr) 1,000 mls @ 125 mls/hr IVCONT .Q8H [facility] Last Admin: 11/24/24 06:29 Dose: 125 mls/hr Documented By: STEPHANIE Piperacillin Sod/Tazobactam (Sod 3.375 gm/ Sodium Chloride) 50 mls @ 100 mls/hr IV Q6H [facility] Last Infusion: 11/24/24 07:04 Dose: Infused Documented By: JUAN Melatonin (Melatonin 3 Mg Tablet) 6 mg PO BEDTIME PRN PRN Reason: Insomnia Ondansetron HCl (Ondansetron Hcl 4 Mg/2 Ml Vial) 4 mg IVPUSH QID PRN PRN Reason: Nausea Oxycodone HCl (Oxycodone Hcl Immed Release 5 Mg Tablet) 5 mg PO Q6H PRN PRN Reason: Pain, Moderate(Pain Scale 4-6) Sodium Chloride (0.9 % Sodium Chloride Flush 3 Ml Syringe) 3 ml IVFLUSH QSHIFT [facility]ISH[facility] Last Admin: 11/24/24 07:15 Dose: Not Given Documented By: JUAN Non-Admin Reason: IV Running Labs 11/23/24 08:06 11/23/24 08:06 Labs: Laboratory Results - last 24 hr 11/23/24 09:11 Lactic Acid 0.8 Procedures Date of Service Date of Service: 11/24/24 Progress Note: A&P Assessment and plan (1) Acute appendicitis: Status: Acute Plan POD 1 following laparoscopic appendectomy for acute appendicitis. He tolerated the procedure well in his wounds are healing nicely. He will be discharged to home today. Was instructed to avoid lifting greater than 10 lb for 2 weeks following the surgery. He should returned to the office in approximately 1 week for wound check. He is welcome to call sooner for any new concerns. Time Spent With Patient Time: Total time managing care of this patient today ____ minutes. Quality Stroke Does the patient have a stroke diagnosis?: No VTE Prior VTE?: No VTE Risk Level:: Surgical - low VTE Device Contraindication: N/A - Device Ordered VTE Drug Contraindication: Treatment Not Indicated
--- NOTE | 2024-11-24 09:00 | P.DS_ITS ---
DS: Providers Provider Date of Service: 11/24/24 Date of admission: 11/23/24 10:17 Date of discharge: 11/24/24 Primary care physician: Arthur Physician Admitting clinician: Charlie Luna Discharging clinician: Charlie Luna DS: Diagnosis Discharge Diagnosis (1) Acute appendicitis: Status: Acute DS: Summary Hospital Course Hospital Course: 34-year-old male patient presenting with a 4 day history of abdominal pain beginning in the right upper quadrant radiating down to the right lower quadrant over the next several days. The pain increased in severity to the point where he presented to the emergency department for further evaluation. On examination he was noted to be tender in the right lower quadrant over McBurney's point. Laboratories revealed a mildly elevated WBC. CT abdomen and pelvis confirmed acute appendicitis with a thickened and inflamed appendix without evidence of perforation. He was taken to the OR on 11/23/2024 for a laparoscopic or possible open appendectomy. Operative findings confirmed appendicitis without perforation. He tolerated the procedure well and remained hemodynamically stable postoperatively. He was started on a regular diet and is tolerating that well. His pain is well- controlled at this time. Plan is for discharge to home with follow-up in the office in 1 week. He was instructed to avoid lifting greater than 10 lb for the next 2 weeks. He may resume a regular diet. He should call the office for fever, chills, nausea, vomiting, increased abdominal pain or other concerns. Status at Discharge Functional status at discharge: independent ambulation Overall status at discharge: patient is back to baseline Time Attestation Discharge Coordination Time (in mins): 25 Quality: Safe Use of Opioids Does Pt have an Active Cancer Diagnosis on the Problem List?: No Quality: Stroke Does the patient have a stroke diagnosis?: No Physical Exam Vital Signs: Vital Signs: Last Vital Signs Temp 97.2 F 11/24/24 03:58 Pulse 56 11/24/24 03:58 Resp 16 11/24/24 03:58 BP 109/53 L 11/24/24 03:58 Pulse Ox 98 11/24/24 03:58 O2 Del Method Room Air 11/24/24 03:58 BMI result Body Mass Index 24.5 Const: General: no acute distress Nutritional Appearance: well nourished Orientation/consciousness: patient oriented x3 Limitations: no limitations Resp: Effort & Inspection: normal respiratory effort GI: Other: Trocar incisions are clean, dry, and intact without redness or discharge. Neuro: General: patient oriented x3 Extrem: General: Yes no pedal edema DS: Data Data Completed and Pending Pending studies at discharge: Pending at discharge 11/23/24 21:42 Surgical [PTH] Routine Labs on day of discharge: Laboratory Results - last 24 hr 11/23/24 09:11 Lactic Acid 0.8 Discharge Plan Discharge Anticipated Discharge Date/Time: 11/24/24 08:56 Patient Disposition: Home, Self-Care Discharge Diagnosis: Acute appendicitis Referrals: Charlie Luna MD [Physician, General Surgery] - 1 Week Physician,None [Primary Care Provider, Medical] - 1 Week Discharge Medications: New oxycodone 5 mg tablet 5 mg PO Q6H PRN (Reason: pain (scale score 7-10)) Qty: 15 0RF Rx Instructions: Partial Fill upon patient request. No Action multivitamin Tablet 1 tab PO DAILY famotidine 10 mg Tablet 10 mg PO DAILY PRN (Reason: Acid Reflux) Patient Comments: Patient took last dose at night, could not remember what time. bismuth subsalicylate 262 mg/15 mL Suspension 524 mg PO Q1H PRN (Reason: Stomach Upset) Patient Comments: Patient took last dose yesterday at night, could not remember what time. Rx Instructions: do not exceed 8 doses in a 24 hour period calcium carbonate 200 mg calcium (500 mg) Tablet,Chewable 200 mg PO TID PRN (Reason: Acid Reflux) Discharge Orders: Discharge Order (Routine); Ordered 11/24/24 Ordered By: Charlie Luna Diet: Advance to usual diet Activity on Discharge: No heavy lifting Stand Alone Forms: Patient Portal Discharge page Print Language: Djib[place] Activity Restrictions/Additional Instructions: No lifting > 10 pounds for 2 weeks No driving for 3 days Ice to the incision x 24 hours After 24 hours, use warm compress or heating pad on low as needed Take Tylenol Extra-strength 1-2 tabs every 6 hours as needed Oxycodone every 6-8 hours as needed for pain Colace 100 mg every day as needed for constipation Remove dressing in 3 days Follow up in office in one week (call office at [phone] for appointment). Care Plan Goals: Returned to normal activity and diet Health Concerns: Abdominal pain right lower quadrant Plan of Treatment: Laparoscopic appendectomy on 11/23/2024 Assessment: Acute appendicitis without perforation
--- NOTE | 2024-11-24 09:05 | MHC.CM.PN ---
PT REPORTS HE LIVES WITH HIS AND IS INDEPENDENT WITH CARE HE HAS NO SERVICES OR DME COPY OF HCP REQUESTED, HE REPORTS HIS IS HIS AGENT PT REPORTS HE IS WORKING ON GETTING A PCP PT WILL DC HOME TODAY WITH NO SERVICES WILL TRANSPORT
--- NOTE | 2024-11-24 09:30 | HO.POSTANES ---
Post Anesthesia Evaluation Post Anesthesia Evaluation Date of Service: 11/24/24 Vital Signs: Vital Signs Temp Pulse Resp BP Pulse Ox O2 Del Method 11/24/24 03:58 97.2 F 56 16 109/53 L 98 Room Air 11/23/24 22:30 58 16 116/62 96 Room Air 11/23/24 22:16 98.1 F 67 18 115/61 97 Room Air 11/23/24 22:11 65 17 123/60 96 Room Air 11/23/24 22:06 73 16 128/71 96 Room Air 11/23/24 22:01 97.7 F 85 17 135/68 100 Room Air 11/23/24 22:00 96.3 F L 58 19 111/66 96 Room Air Anesthesia: General Endotracheal-GETA Mental Status: Awake Pain Control: Satisfactory Nausea/Vomiting: None Hydration: Adequate Anesthesia-Related Issues: No Anes. Related Issues
== END 2024-11-24 09:45 | disposition home or self-care (01) | DRG 233 ==
LOC: HO.ED 10:21 → HO.EDOVER 10:24 → HO.S3 10:38
PROVIDERS: Nurse Practitioner Family; Admitting Provider Surgery; Emergency Provider Emergency Medicine Emergency Medical Services; Visit Provider Surgery
PROC: 0DTJ4ZZ Resection of Appendix, Percutaneous Endoscopic Approach (ICD-10-PCS; CPT 44970; principal; 2024-11-23 21:00)
DX: K35.33 Acute appendicitis with perforation, localized peritonitis, and gangrene, with abscess (principal); Z79.899 Other long term (current) drug therapy
CPT/HCPCS: 36415; 74177; 80053; 81003; 83605; 83690; 85025; 87040; 88304; 99285; J0131; J1100; J1885; J2003; J2405; J2543; J2704; J3010; Q9967

== ENCOUNTER → 2024-11-23 08:25 | Outpatient (BNV) | payer BC, SELFPAY | PROVIDERS: Emergency Provider Emergency Medicine Emergency Medical Services; Visit Provider Radiology Vascular & Interventional Radiology | DX: K35.80 Unspecified acute appendicitis (principal) | CPT/HCPCS: 74177 ==

== ENCOUNTER → 2024-11-23 10:17 | Outpatient (BNV) | payer BC, SELFPAY | PROVIDERS: Admitting Provider Surgery; Emergency Provider Emergency Medicine Emergency Medical Services; Visit Provider Surgery | DX: K35.30 Acute appendicitis with localized peritonitis, without perforation or gangrene (principal) | CPT/HCPCS: 44970; 99024; 99222; 99499 ==

== ENCOUNTER 2024-11-29 09:54 | Outpatient (AMB) | payer BC, SELFPAY ==
--- NOTE | 2024-11-29 09:57 | MHC.OFFVIS ---
Vital Signs 11/29/24 10:07 Height 6 ft 1 in Weight 185 lb BMI 24.4 BP 131/62 Blood Pressure Location Lt brachial Position Sitting Pulse 72 Intake Visit Reasons: s/p Laparoscopic appendectomy Intake Note: Patient here s/p Laparoscopic appendectomy. Patient c/o: lt side lump underneath scar line. Denies pain, tenderness. Steri strips removed without incident. No longer taking rx pain meds. Surgery (): 11-23-2024. Professor Of Psychiatry Required: No Accompanied by: Self / Same As Patient Allergies No Known Allergies Allergy (Verified 11/29/24 09:58) HPI HPI s/p Laparoscopic appendectomy: Details: Hieu Piper is a 34 year old male who presents for a wound check. He underwent a laparoscopic appendectomy on 11/23/[address] Luna for acute appendicitis. He tolerated the procedure well and was discharged to home the following day. He reports feeling overall well today. He took tylenol for a few nights after the surgery but otherwsie did not need any pain medications. He currently denies pain. He is tolerating a solid diet and having regular, normal bowel movements. He does not some continued swelling at one of his incision sites. He denies drainage, redness. He has no other concerns. [facility] Surgical History (Updated 11/29/24 @ 10:18 by Farida Rose PA-C) History of laparoscopic appendectomy (11/23/24) Social History Household Members: Spouse and Children Housing: House Do you presently have visiting nurse or other home services: No Patient Tobacco Use Status: Never used Tobacco Substance Use Type: Marijuana service: No Review of Systems Const All systems reviewed & are unremarkable except as noted in HPI and below Physical Exam Const General: comfortable, no acute distress and alert Orientation/consciousness: patient oriented x3 Resp Effort & Inspection: normal respiratory effort GI Other: soft, nondistended incision sites well approximated without erythema left lateral incision site with very mild edema and induration underlying Palpation (GI): no guarding Skin General skin exam: no rashes or lesions noted Neuro General: patient oriented x3 and moves all extremities Results Reviewed Results Reviewed: Vermiform appendix, appendectomy: Acute appendicitis and periappendicitis Assessment & Plan Assessment & Plan (1) History of laparoscopic appendectomy: Onset Date: 11/23/24 Comment: Charlie Taylor Code(s): Z90.49 - Acquired absence of other specified parts of digestive tract Category: Surgical Plan 34 year old male s/p laparoscopic appendectomy on 11/23/24 for acute appendicitis. He tolerated the procedure well. He is clinically appearing well with well healed incision sites without evidence of infection. He has some mild edema and induration of the left lateral incision site and he reassured this will improve with time and can apply cold packs a few times a day to help. He was instructed on continuing lifting restrictions for another 2-3 weeks. He can follow up as needed. Medications: Discontinued oxycodone Partial Fill upon patient request. Discontinued Reason: Patient Completed Course 5 mg PO Q6H PRN 15 tabs 0RF pain (scale score 7-10) Coding Level of Care Code Global (87246) Diagnoses History of laparoscopic appendectomy Z90.49
[2024-11-29 10:07] VITALS: BP 131/62; PULSE 72; BMI 24.4
--- OUTSIDE RECORDS SUMMARY | 2024-11-29 10:39 | XMS_ITS | Clinical Summary ---
Author Organization [facility] Address [address] [place] [id number] Phone Care Team Providers Care Photolith Operator Name Role Phone Morgan Acosta MD Primary Care Provider [phone] Medications No known medications Active Problems No [...] topic Medical Devices Not on file Insurance [facility] [address] [place] [address] [place] [address] [place] [address] [facility] Care Teams Photolith Operator Relationship Specialty Start Date End Date Morgan Acosta MD [address] [place] [address] [id number] PCP - General Internal Medicine 11/17/21 Additional Source Comments The information contained in this document represents components of the legal health record. It is not the complete legal health record.[facility]
== END 2024-11-29 10:12 | disposition home or self-care (01) ==
LOC: HO.HGS 09:55
PROVIDERS: Visit Provider Physician Assistant Surgical
DX: Z90.49 Acquired absence of other specified parts of digestive tract (principal)
CPT/HCPCS: 99024